=== PATIENT | female | born 1990 | race Caucasian/White ===

== ENCOUNTER 2025-04-15 12:46 | Emergency (ER) | payer MEDICARE, MEDICAID, SELFPAY ==
--- OUTSIDE RECORDS SUMMARY | 2022-05-28 09:30 | XMS_ITS | Continuity of Care Document ---
Author Organization [facility] Address [address] [place] [address] Phone Care Team Providers Care Ribbon Tier Name Role Phone Sumanth Saavedra OD, Ada Unavailable Unavailable Allergies, Adverse Reactions, Alerts Substance Reaction Status Criticality PENICILLIN Active No Information Sulfa (Sulfonamide Antibiotics) Active No Information Medications Medication Instructions Dosage Effective Dates (start - stop) Status Comments levothyroxine 25 mcg tablet - Active omeprazole 20 mg capsule,delayed release - Active Procedures Procedure Date VISUAL FIELD EXAMINATION(S) INTERMEDIATE EYE EXAM, NEW PATIENT May- Advance Directives Directive Yes / No Effective Date File Name No Information Encounters Encounter Description Practice Location Reason(s) For Visit Diagnoses Date Provider Providers Copied on Encounter [facility], [address] [place] [address], [place], [place], [facility], tel:[phone] [facility] Disability exam (chief complaint) Optic nerve hypoplasia, bilateralNys tagmusMyopia , left eye May- 2 Sumanth Saavedra OD Ada. [facility] [place], [place], [id number], . tel:[phone] Referring Provider: Beverley Saavedra OD, [address] [place], [address]. tel:[phone] [facility], [address] [place] [address], [place] [address], tel:[phone] [facility] No Information May- 2 Sumanth Saavedra OD Ada. [facility] [place], [place], [id number], . tel:[phone] Family History Family Member Type Diagnosis Age At Onset No Information Payers Payer name Insurance type Covered constitution party ID Brandi bales(s) [facility] [id number] Social History Type Description Quantity Date Captured Comments Alcohol Use Details Unknown Caffeine Use Details Unknown Tobacco Use Status Current non-smoker Smoking Status Never smoker Non-Smoking Tobacco Use Details : No Details Available : No Details Available Sex Undifferentiated Chief Complaint And Reason For Visit From encounter dated '05/28/2022 13:30'. Disability exam (chief complaint). Description: The 32 year old O presents for evaluation of Disability exam in the right eye and left eye. The condition is unstable. 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 Pt says that she can not see out of the OD and has some vision in OS. PT notes that she had glasses but misplaced them about 1 month ago, notes they were more for protection. Pt says that she also has nystagmus OU. Pt denies eye pain, flashes and floaters. No qtts. Reason For Referral Reason For Referral No Information Plan Of Treatment Date Type Action Status Patient Education Dilated Retinal Exam: A bout This Test completed History Of Present Illness Encounter Date Complaint History Of Prese nt Illness Disability exam The 32 year old O presents for evaluation of Disability exam in the right eye and left eye. The condition is unstable. 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 Pt says that she can not see out of the OD and has some vision in OS. PT notes that she had glasses but misplaced them about 1 month ago, notes they were more for protection. Pt says that she also has nystagmus OU. Pt denies eye pain, flashes and floaters. No qtts. Functional Status Date Functional Assessmen t No Information Instructions Date Instruction Additional Infor mation Impression/Plan Related to Optic nerve hypoplasia, bilateral Impression/Plan Related to Nysta gmus Impression/Plan Related to Myopi a, left eye Assessments Type Assessment Date assessment Optic nerve hypoplasia, timothya l assessment Nystagmus assessment Myopia, left eye impression Optic nerve hypoplasia, timothya l: H47.033 impression Nystagmus: H55.00 impression Myopia, left eye: H52.12 2021 Patient Care Teams Name Effective Dates (start - stop) Status Members No Information
--- OUTSIDE RECORDS SUMMARY | 2025-03-13 12:40 | XMS_ITS | Encounter Summary ---
Author Organization [facility] Address [address] [id number] Care Team Providers Care Cephalometric Analyst Name Role Phone Ana Wells APRN Primary Care Provider [phone] Reason for Referral * Consultation (Routine) - Authorized Specialty Diagnoses / Procedures Referred By Deidra riggins Referred To Contact Podiatry Diagnoses Ana Shea APRN [address] [place] [address] Phone: tel: fax: Referral ID Status Reason Start Date Expiration Date Visits Requested Visits Authorized [id number] Authorized Specialty Services Required 03/13/2025 09/12/2026 1 1 * Consultation (Routine) - Authorized Specialty Diagnoses / Procedures Referred By Deidra riggins Referred To Contact Behavioral Health Diagnoses Mild episode of recurrent major depressive disorder (CMS/HCC) Ana Wells APRN [address] [place] [address] Phone: tel: fax: Referral ID Status Reason Start Date Expiration Date Visits Requested Visits Authorized [id number] Authorized Specialty Services Required 03/13/2025 09/12/2026 [address] Bowman Reason for Visit * Reason Comments Follow-up Encounter Details Date Type Department Care Team (Latest Contact Info) Description 03/13/2025 12:40 PM EDT Office Visit [facility] Medicine [address] [place] [address] Ana Wells Johnathan, DEVOPS ARCHITECT [address] [place] [address] 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); Plantar wart; Acute nonintractable headache, unspecified headache type; Hypopituitarism (CMS/HCC); Hypothyroidism, unspecified type Social History Tobacco Use Types Packs/Day Years Used Date Smoking Tobacco: Never Passive Smoke Exposure: Never Smokeless Tobacco: Never Tobacco Cessation:Counseling Given: Not Answered Alcohol Use Standard Drinks/Week Comments Not Currently 0 (1 standard drink = 0.6 oz pur e alcohol) Humiliation, Afraid, Rape, and Kick questionnair e Answer Date Recorded Within the last year, have y ou been afraid of your partner or ex-partner? No 08/22/2024 Within the last year, have y ou been humiliated or emotionally abused in other ways by your partner or ex-partner? No Within the last year, have y ou been kicked, hit, slapped, or otherwise physically hurt by your partner or ex-partner? No 08/22/2024 Within the last year, have y ou been raped or forced to have any kind of sexual activity by your partner or ex-partner? No 08/22/2024 Social Connection and Isolation Panel Answer Date Recorded In a typical week, how many times do you talk on the phone with family, friends, or neighbors? More than three times a week 02/21/2024 How often do you get togethe r with friends or relatives? More than three times a week 02/21/2024 How often do you attend chur ch or jewish services? Never 02/21/2024 Do you belong to any clubs o r organizations such as yazidism groups, unions, fraternal or athletic groups, or school groups? No 02/21/2024 How often do you attend meet ings of the clubs or organizations you belong to? Never 02/21/2024 Are you , , di vorced, , never , or living with a partner? Living with partner 02/21/2024 AUDIT-C Answer Date Recorded Q1: How often do you have a drink containing alc ohol? Monthly or less 08/22/2024 Q2: How many drinks containi ng alcohol do you have on a typical day when you are drinking? 1 or 2 08/22/2024 Q3: How often do you have si x or more drinks on one occasion? Never 08/22/2024 Overall Financial Resource Strain (CARDIA) Answe r Date Recorded How hard is it for you to pa y for the very basics like food, housing, medical care, and heating? Not hard at all 02/21/2024 PHQ-2 Answer Date Recorded Patient Health Questionnaire-2 Score 2 08/27/2024 [facility] - Occupational Stress Questionnaire Answer Date Recorded Do you feel stress - tense, restless, nervous, or anxious, or unable to sleep at night because your mind is troubled all the time - these days? Not at all 02/21/2024 Exercise Vital Sign Answer Date Recorde d On average, how many days pe r week do you engage in moderate to strenuous exercise (like a brisk walk)? 3 days 08/22/2024 On average, how many minutes do you engage in exercise at this level? 30 min 08/22/2024 Hunger Vital Sign Answer Date Recorded Within the past 12 months, y ou worried that your food would run out before you got the money to buy more. Never true 08/22/19 25 Within the past 12 months, t he food you bought just didn't last and you didn't have money to get more. Never true 08/22/2024 PRAPARE - Transportation Answer Date Re corded In the past 12 months, has l ack of transportation kept you from medical appointments or from getting medications? No 03/2025 In the past 12 months, has l ack of transportation kept you from meetings, work, or from getting things needed for daily living? No 08/22/2024 Housing Stability Vital Sign Answer Nathan e Recorded In the last 12 months, was t here a time when you were not able to pay the mortgage or rent on time? No 02/21/2024 In the last 12 months, how many places have you lived? 1 02/21/2024 In the last 12 months, was t here a time when you did not have a steady place to sleep or slept in a intermediate (including now)? No 02/21/2024 PHQ-9 Answer Date Recorded Patient Health Questionnaire-9 Score 5 08/27/2024 Housing Stability Vital Sign Answer Nathan e Recorded In the last 12 months, was t here a time when you were not able to pay the mortgage or rent on time? No 08/22/2024 In the past 12 months, how m any times have you moved where you were living? 1 08/22/2024 At any time in the past 12 m [facility], were you homeless or living in a intermediate (including now)? No 08/22/2024 Utilities Answer Date Recorded In the past 12 months has th e electric, gas, oil, or water company threatened to shut off services in your home? No 08/22/2024 Comments Unknown Sex and Gender Information Value Date Recorded Sex Assigned at Not on file Legal Sex Female 8:07 PM EDT Gender Identity Not on file Sexual Orientation Not on file documented as of this encounter Last Filed Vital Signs Vital Sign Reading Time Taken Comments Blood Pressure 108/70 03/13/2025 12:40 PM EDT Pulse 74 03/13/2025 12:40 PM EDT Temperature - - Respiratory Rate 18 03/13/2025 12:40 PM EDT Oxygen Saturation 99% 03/13/2025 12:40 PM EDT Inhaled Oxygen Concentration - - Weight 46.5 kg (102 lb 8.2 oz) 03/13/2025 12:40 PM EDT Height 157.5 cm (5' 2 ) 03/13/2025 12:40 PM EDT Body Mass Index 18.75 03/13/2025 12:40 PM EDT documented in this encounter Functional Status * Calculated C-SSRS Risk Score (Lifetime/Recent) Answer Date of Assessment Author No Risk Indicated 03/13/2025 12:42 PM EDT Hattie Gonzalez * Question Answer Date of Assessment Author 1. Wish to be (Past 1 Month) No 025 12:42 PM EDT Hattie Mckeon 2. Non-Specific Active Suici jenaro Thoughts (Past 1 Month) No 03/13/2025 12:42 PM EDT La Nena Mckeon 6. Suicidal Behavior (Lifetime) No 12:42 PM EDT Hattie Mckeon documented as of this encounter Miscellaneous Notes * Progress Notes - Ana Wells, DEVOPS ARCHITECT - 03/13/2025 12:40 PM EDT Subjective Patient ID: Sharmila Vieyra is a 35 y.o. female. Chief Complaint Patient presents with Follow-up Here for follow-up. Patient says she saw Endo and has MRI scheduled in Apr. She remains on levothyroxine and they recommended she start vitamin D which she hasn't done just yet. She stopped Flexeril, says headaches improved and didn't feel like she needed it any more. Patient does c/o right foot pain for a couple weeks. Says the pain comes and goes, located on the bottom/outer part of her foot. She denies any injury or trauma. Hasn't really taken anything for the pain. Notices it more if she stands for a long period of time or if she hits the foot on something. No associated edema, erythema, ecchymosis, or warmth. Says she is also considering therapy for depression. She has a list of local providers, wondering if I had a recommendation. Denies any SI/HI. The following portions of the chart were reviewed this encounter and updated as appropriate: Tobacco Allergies Meds Problems Med Hx Surg Hx Fam Hx Current Medications[1] Review of Systems A 14 point ROS reviewed and is otherwise negative except as per HPI. Objective Visit Vitals BP 108/70 Pulse 74 Resp 18 Ht 1.575 m (5' 2 ) Wt 46.5 kg (102 lb 8.2 oz) SpO2 99% BMI 18.75 kg/m?? OB Status Unknown Smoking Status Never BSA 1.43 m?? Body mass index is 18.75 kg/m??. Physical Exam Vitals reviewed. Constitutional: General: She is not in acute distress. HENT: Mouth/Throat: Mouth: Mucous membranes are moist. Cardiovascular: Rate and Rhythm: Normal rate. Pulmonary: Effort: Pulmonary effort is normal. Skin: General: Skin is warm and dry. Comments: Calloused plantar wart noted to right foot, TTP. No erythema or drainage. Neurological: Mental Status: She is alert and oriented to person, place, and time. Psychiatric: Mood and Affect: Mood normal. Behavior: Behavior normal. Assessment/Plan 1. Mild episode of recurrent major depressive disorder (CMS/HCC) (Primary) Referral to see Dr. Bowman placed per patient request. Healthy coping mechanisms advised. Encouraged close follow-up for any worsening of symptoms. - Ambulatory referral to Behavioral Health; Future 2. Plantar wart Will refer to Podiatry due to difficulty treating. - Ambulatory referral to Podiatry; Future 3. Acute nonintractable headache, unspecified headache type Resolved per patient. Will continue to monitor. 4. Hypopituitarism (CMS/HCC) 5. Hypothyroidism, unspecified type Continue with Endo as scheduled. Ana Wells APRN [1] Current Outpatient Medications: levothyroxine (Synthroid, Levoxyl) 50 MCG tablet, Take 1 tablet (50 mcg) by mouth 1 (one) time eachday., Disp: 90 tablet, Rfl: 3 omeprazole (PriLOSEC) [address] capsule, Take 1 capsule (20 mg) by mouth 1 (one) time each day. Do not crush or chew., Disp: 90 capsule, Rfl: 3 Current Facility-Administered Medications: cosyntropin (Cortrosyn) injection 250 mcg, 250 mcg, Intramuscular, Once, Janay Collins DO documented in this encounter Plan of Treatment Upcoming Encounters Date Type Department Care Team (Late st Contact Info) Description 04/16/2025 2:00 PM EDT Office Visit [facility] [address] [place] [address] Cullen Bowman, Helene [address] [facility] [address] [place] [address] 04/17/2025 3:15 PM EDT Appointment [facility] [address] [place] [address] Scheduled Referrals Name Type Priority Associated Diagnoses Order Schedule Ambulatory referral to Behavioral Health Outpatient Referral Routine Mild episode of recurrent major depressive disorder (CMS/HCC) Expected: 03/13/2025 (Approximate), Expires: 09/14/2026 Ambulatory referral to Podiatry Outpatient Referral Routine Plantar wart Expected: 03/13/2025 (Approximate), Expires: 09/13/2026 documented as of this encounter Visit Diagnoses Diagnosis Mild episode of recurrent major depressive disorder (CMS/HCC)- Primary Plantar wart Acute nonintractable headache, unspecified headache type Hypopituitarism (CMS/HCC) Panhypopituitarism Hypothyroidism, unspecified type documented in this encounter Additional Health Concerns Assessment Noted Time PHQ-9 Depression Total Score: 5 08/27/19 25 2:24 PM EST A fall risk assessment has been complete d for the patient 08/22/2024 12:26 PM EST A Body Mass Index follow-up plan has been documented for the patient 03/13/2025 1:59 PM EDT documented as of this encounter Care Teams Cephalometric Analyst Relationship Specialty Start Date End Date Ana Wells APRN [address] [place] [address] PCP - General Family Medicine 02/21/24 documented as of this encounter
[2025-04-15 12:48] VITALS: BP 111/63; PULSE 70; RESP 18; TEMP 36.4; O2SAT 97; BMI 18.1
--- OUTSIDE RECORDS SUMMARY | 2025-04-15 13:10 | XMS_ITS | Encounter Summary ---
Author Organization Healthcare Address [address] [id number] Care Team Providers Care Automatic Centrifugal Station Operator Name Role Phone Ana Wells BRINE PURIFIER Primary Care Provider Reason for Visit * Reason Onset Date Comments HCN Clinical Concern/Question 03/25/2025 Pl ease see note... Encounter Details Date Type Department Care Team (Late st Contact Info) Description 03/25/2025 Telephone [facility] Medicine [address] [place] [address] Ana Wells APRN [address] [place] [address] HCN Clinical Concern/Question (Please see note...) Social History Tobacco Use Types Packs/Day Years Used Date Smoking Tobacco: Never Passive Smoke Exposure: Never Smokeless Tobacco: Never Alcohol Use Standard Drinks/Week Comments Not Currently [...] often do you attend chur ch or jainism services? Never 02/21/2024 Do you belong to any clubs o r organizations such as religion groups, unions, fraternal or athletic groups, or [...] Recorded Patient Health Questionnaire-2 Score 2 08/27/2024 [facility] - Occupational Stress Questionnaire Answer Date Recorded [...] place to sleep or slept in a fci (including now)? No 02/21/2024 PHQ-9 Answer Date [...] any time in the past 12 m [facility], were you homeless or living in a fci (including now)? No 08/22/2024 Utilities Answer Date [...] on file documented as of this encounter Miscellaneous Notes * Telephone Encounter - Yuli Hester - 03/26/2025 8:46 AM EDT Called and scheduled patient for 04/16/25 * Telephone Encounter - Pia Harmon - 03/25/2025 12:24 PM EDT Clinical Concern/Question Reason for Call: Virgen Huggins called with patient on the line asking to schedule patient for appointment with Dr. Bowman that patient was referred to see at last appointment. Patient is asking to be contacted at Virgen Huggins phone number [phone]. Best contact number: Other: [phone] Optimal time of day to reach caller: ANYTIME Additional comments/information from caller: Not Applicable Note: Please do not reply to this message. Follow-up communication and further actions as a result of this message need to be communicated with the patient directly, if the patient is not active onMyChart. If the patient is active on MyChart, they will receive notification of the communication/outcome via [employer]. documented in this encounter Plan of Treatment Upcoming Encounters Date Type Department Care Team (Late st Contact Info) Description 04/16/2025 2:00 PM EDT Office Visit [facility] [address] [place] [address] Cullen Bowman, PsyD [address] [place] [address] [place] [address] 04/17/2025 3:15 PM EDT Appointment [facility] [address] [place] [address] documented as of this encounter Visit Diagnoses Not on filedocumented in this encounter Additional Health Concerns Assessment Noted Time PHQ-9 Depression Total Score: 5 08/27/19 25 2:24 PM EST A fall risk assessment has been complete d for the patient 08/22/2024 12:26 PM EST A Body Mass Index follow-up plan has been documented for the patient 03/13/2025 1:59 PM EDT documented as of this encounter Care Teams Automatic Centrifugal Station Operator Relationship Specialty Start Date End Date Ana Wells APRN [address] [place] [address] PCP - General Family Medicine 02/21/24 documented as of this encounter
--- OUTSIDE RECORDS SUMMARY | 2025-04-15 13:10 | XMS_ITS ---
Author Organization [facility] Address [address] [place] [address] Care Team Providers Care Line Maintenance Name Role Phone Ana Wells APRN Primary Care Provider Annual Wellness Status:Closed (Closed) Start date:08/20/2024 Enrollment date:08/22/2024 Enrollment reason:Identified using claims or encounter data End date:02/16/2025 Close reason:Patient graduated Continued Care and Services Coordination
--- OUTSIDE RECORDS SUMMARY | 2025-04-15 13:10 | XMS_ITS | Encounter Summary ---
Author Organization Healthcare Address [address] [id number] Care Team Providers Care Supervisor Transcribing Operators Name Role Phone Ana Wells TD Primary Care Provider Encounter Details Date Type Department Care Team (Latest Contact Info) Description 03/13/2025 Travel Social History Tobacco Use Types Packs/Day Years [...] often do you attend chur ch or methodist services? Never 02/21/2024 Do you belong to any clubs o r organizations such as druze groups, unions, fraternal or athletic groups, or [...] Recorded Patient Health Questionnaire-2 Score 2 08/27/2024 [facility] - Occupational Stress [...] place to sleep or slept in a alf (including now)? No 02/21/2024 PHQ-9 Answer Date [...] any time in the past 12 m [facility], were you homeless or living in a alf (including now)? No 08/22/2024 Utilities Answer Date [...] on file documented as of this encounter Functional Status * Calculated C-SSRS Risk Score (Lifetime/Recent) Answer Date of Assessment Author No Risk Indicated 03/13/2025 12:42 PM EDT Hattie Gonzalez * Question Answer Date of Assessment Author 1. Wish to be (Past 1 Month) No 025 12:42 PM BEBOT Hattie Mckeon 2. Non-Specific Active Suici jenaro Thoughts (Past 1 Month) No 03/13/2025 12:42 PM BEBOT La Nena Mckeon 6. Suicidal Behavior (Lifetime) No 12:42 PM Hattie Rizzo documented as of this encounter Plan of Treatment Upcoming Encounters Date Type Department Care Team (Late st Contact Info) Description 04/16/2025 2:00 PM EDT Office Visit [facility] [address] [place] [address] Cullen Bowman, PsyD [address] [facility] [address] [place] [address] 04/17/2025 3:15 PM EDT Appointment [facility] [address] [place] [address] documented as of this encounter Visit Diagnoses [...] documented as of this encounter Care Teams Supervisor Transcribing Operators Relationship Specialty Start Date End Date Ana Wells APRN [address] [place] [address] PCP - General Family Medicine 02/21/24 documented as of this encounter
--- OUTSIDE RECORDS SUMMARY | 2025-04-15 13:10 | XMS_ITS | Clinical Summary ---
Author Organization Healthcare Address [address] [place] [address] Care Team Providers Care Welding Machine Operator/Tender Name Role Phone Ana Wells APRN Primary Care Provider Allergies Active Allergy Reactions Criticality Noted Date Comments Penicillins Rash,Unknown - Patie nt states they do not know rxn details Low 04/19/2005 Sulfacetamide Rash,Unknown - Patie nt states they do not know rxn details Low 04/19/2005 Medications omeprazole (PriLOSEC) [address] capsuleIndicatio ns:Chronic upset stomach Take 1 capsule (20 mg) by mouth 1 (one) time each day. Do not crush or chew. 90 capsule 3 06/25/2024 Active levothyroxine (Synthroid, Levoxyl) 50 MCG tabletIndication s:Hypothyroidism , unspecified type Take 1 tablet (50 mcg) by mouth 1 (one) time each day. 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 Hypothyroidism 11/09/2014 Legally blind 11/09/2014 Encounters Date Type Department Care Team Description 03/25/[address] [address] Ana Wells, IT SOFTWARE ENGINEER HCN Clinical Concern/Question (Please see note...) 03/13/2025 12:40 PM EDT Office Visit [facility] [address] [place] [address] Ana Wells APRN 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); Plantar wart; Acute nonintractable headache, unspecified headache type; Hypopituitarism (CMS/HCC); Hypothyroidism, unspecified type 03/13/2025 Travel from Last 3 Months Immunizations Immunization Administration Dates Next Due Hep A, ped/adol, 2 dose 03/04/2008 Moderna COVID-19 Vaccine (Kitchen Cleaner) 12+ years 09/2020,02/16/2021 Family History Medical History Relation Name Comments Hypertension, benign Father Brain cancer Mother Hypertension, benign Paternal Grandmother Scoliosis Paternal Grandmother Relation Name Status Comments Father Mother Paternal Grandmother Social History Tobacco Use Types Packs/Day Years [...] week 02/21/2024 How often do you attend [facility] or [facility] services? Never 02/21/2024 Do you belong to any clubs o r organizations such as samaritan groups, unions, fraternal or athletic groups, or [...] Recorded Patient Health Questionnaire-2 Score 2 08/27/2024 [facility] - Occupational Stress Questionnaire Answer Date Recorded [...] place to sleep or slept in a snf (including now)? No 02/21/2024 PHQ-9 Answer Date [...] were you homeless or living in a snf (including now)? No 08/22/2024 Utilities Answer Date Recorded In the past 12 months has th e [employer], gas, oil, or water company threatened to shut off services in your home? No 08/22/2024 Comments Unknown Sex and Gender Information Value Date Recorded Sex Assigned at Not on file Legal Sex Female 8:07 PM EDT Gender Identity Not on file Sexual Orientation Not on file Last Filed Vital Signs Vital Sign Reading [...] Mass Index 18.75 03/13/2025 12:40 PM EDT Plan of Treatment Upcoming Encounters Date Type Department Care Team (Late st Contact Info) Description 04/16/2025 2:00 PM EDT Office Visit [facility] [address] [place] [address] Cullen Bowman, Helene [address] [place] [address] 04/17/2025 3:15 PM EDT Appointment [facility] [address] [place] [address] Health Maintenance Due Date Last Done Comments [facility]-Infant/Child/Adol SDOH Screenings 1991 [facility]-Varicella Vaccines (1 of 2 - 13+ 2-dose series) 01/08/2004 [facility]-Hepatitis A Vaccines (2 of 2 - 2-dose series) 09/04/2008 03/04/2008 [facility]-DTaP,Tdap,and Td Vaccines (1 - Tdap) 2010 [facility]-Hepatitis B Vaccines (1 of 3 - 19+ 3-dose series) 2010 [facility]-Pap Smear 01/08/2012 HPV Vaccines (1 - 3-dose SCDM series) 2018 [facility]-Cervical Cancer Screening 2021 [facility]-HPV/Cotest 2021 [id number]-21 Vaccine (3 - Moderna risk series) 04/13/2021 03/16/2021, 02/16/2021 [facility]- SDOH Screenings 02/19/2025 [facility]-Adult SDOH Screenings 02/19/2025 08/22/2024 [facility]-Influenza Vaccine (#1) 2025 [facility]-Depression Screening 08/27/2025 025, 08/27/2024 [facility]-Medicare Annual Wellness (AWV) 08/27/2025 08/27/2024 [facility]-Zoster Vaccines (1 of 2) 2041 [facility]-HIV Screening Completed 02/21/2024 [facility]-Hepatitis C Screening Completed 02/21/2024 [facility]-HIB Vaccines Aged Out No longer e ligible based on patient's age to complete this topic [facility]-IPV Vaccines Aged Out No longer e ligible based on patient's age to complete this topic [facility]-Pneumococcal Vaccine: Pediatrics (0 to 5 Years) and At-Risk Patients (6 to 49 Years) Aged Out No longer eligible b ased on patient's age to complete this topic [facility]-Rotavirus Vaccines Aged Out No lo nger eligible based on patient's age to complete this topic Procedures Procedure Name Priority Date/Time Associated Diagnosis Comments HEPATITIS C ANTIBODY W/REFLEX TO HCV QUANT PCR Routine 02/21/2024 1:11 PM EDT Need for hepatitis C screening test HIV 1/2 ANTIBODY/ANTIGEN SCREEN WITH REFLEX TO HIV I/II DIFFERENTIATION Routine 02/21/2024 1:11 PM EDT Screening for human immunodeficiency virus from Last 3 Months or Most Recently Relevant to Health Maintenance Results * HIV 1 & 2 Antibody/Antigen Screen (02/21/2024 1:11 PM EDT) Pathologist [facility] HIV 1 & 2 Antibody/Antigen Screen Non Reactive Non Reactive 02/21/2024 9:24 PM EDT [facility] Comment:Screening for HIV 1 & 2 antibodies, and P24 antigen is NONREACTIVE. No confirmatory testing is required. Blood Venous blood specimen / Unknown Venipuncture / Unknown 02/21/2024 1:11 PM EDT 02/21/2024 1:11 PM EDT Ana Wells APRN LAB BLOOD ORDERABLES Final Resu lt Performing Organization Address City/[facility]/ZIP Co de Phone Number [facility] [address] [place] [address] * Hepatitis C Antibody w/Reflex to HCV Quant PCR (02/21/2024 1:11 PM EDT) Pathologist [facility] Hepatitis C Antibody Negative Negative 02/21/2024 7:37 PM EDT [facility] Blood Venous blood specimen / Unknown Venipuncture / Unknown 02/21/2024 1:11 PM EDT 02/21/2024 1:11 PM EDT Ana Wells IT SOFTWARE ENGINEER LAB BLOOD ORDERABLES Final Resu lt Performing Organization Address City/[facility]/ZIP Co de Phone Number [facility] [address] [place] [address] from Last 3 Months or Most Recently Relevant to Health Maintenance Insurance [facility] MEDICAID MEDICARE Care Teams Welding Machine Operator/Tender Relationship Specialty Start Date End Date Ana Wells APRN [address] [place] [address] PCP - General Family Medicine 02/21/24
[2025-04-15 13:30] VITALS: BP 103/66; PULSE 68; O2SAT 97
[2025-04-15 13:32] LABS: Microscopic, Urine URINE MICROSCOPIC (MICROSCOPIC)
[2025-04-15] MEDS: 0.9 % SODIUM CHLORIDE 1000ML 1,000 ML 999 ML IV (13:32)
[2025-04-15] MEDS: ONDANSETRON 4MG/2ML VIAL 4 MG IV (13:32)
[2025-04-15 13:34] LABS: Hematocrit 27.8 % (37.0-47.0); Hemoglobin 9.7 g/dL (12.2-16.2); Immature Granulocytes % 0.1 %; Mean Corpuscular HGB Conc 34.9 g/dL (31.8-35.4); Mean Corpuscular Hemoglobin 32.0 pg (27.0-31.2); Mean Corpuscular Volume 91.7 fl (81-99); Nucleated Red Blood Cells % 0 %; Platelet Count 202 K/mm3 (142-424); Red Blood Count 3.03 M/mm3 (4.20-5.40); Red Cell Distribution Width-SD 41.4 fL; White Blood Count 7.9 K/mm3 (4.8-10.8)
[2025-04-15 13:38] LABS: Urine Pregnancy, HCG Qual. Negative (Negative)
[2025-04-15 13:44] LABS: Albumin Level 4.1 g/dl (3.5-5.0); Chloride 108 mmol/L (98-107); Sodium 139 mmol/L (136-145)
[2025-04-15 13:45] LABS: Potassium 4.5 mmoL/L (3.5-5.1)
[2025-04-15 13:47] LABS: Alanine Aminotransferase 13 U/L (12-78); Albumin/Globulin Ratio 1.4 (1.1-1.8); Alkaline Phosphatase 38 U/L (38-126); Anion Gap 9.5 mEq/L (5-15); Aspartate Amino Transferase 36 U/L (14-36); Bilirubin,Total 0.4 mg/dl (0.2-1.3); Blood Urea Nitrogen 18 mg/dl (7-17); Carbon Dioxide 26 mmol/L (22.0-30.0); Creatinine Clearance Estimated 47 mL/min (50-200); Creatinine,Serum 1.20 mg/dl (0.52-1.04); Estimated Glomerular Filt Rate 51 ml/min (>60); GFR (African American) 62 ML/MIN (>60); Globulin 2.9 g/dL (1.3-3.2); Lipase 89 U/L (23-300); Total Protein,Serum 7.0 g/dl (6.3-8.2)
[2025-04-15 13:48] LABS: Calcium 8.9 mg/dl (8.4-10.2); Glucose 83 mg/dl (74-100)
[2025-04-15 13:49] LABS: Bilirubin,Urine Negative (Negative); Color,Urine YELLOW (Yellow); Glucose,Urine (UA) Negative (Negative); Ketones,Urine Negative (Negative); Leukocyte Esterase,Urine Negative (Negative); PH,Urine 6.5 (5.0-8.5); Protein,Urine Negative (Negative); Specific Gravity, Urine 1.015 (1.005-1.030); Urobilinogen,Urine 0.2 EU/dl (0.2)
[2025-04-15 13:51] LABS: Squamous Epithelial Cell,Urine Occasional #/hpf (0-5); WBC,Urine Occasional #/hpf (0-3)
[2025-04-15 14:00] VITALS: O2SAT 100
--- NOTE | 2025-04-15 14:11 | ED_ITS ---
<Statement entered by Perry Espinosa MD - 04/15/25 20:33> I was consulted by the DIANA, and we discussed the complexity of the problems being addressed. I approve the treatment and management plan for this patient's care in the emergency department, thus performing a substantive portion of the medical decision making. I had a further discussion with patient regarding her symptoms and anemia. She states that she has been worked up and diagnosed with iron deficiency anemia in the past and was previously on iron supplementation. She is unsure why she has iron deficiency anemia and reports no obvious sources of bleeding. With her diarrhea, she denies any bloody or dark stools. I personally performed a gallbladder ultrasound due to some mild RUQ abdominal pain with palpation, which was negative. See procedure note for details. Patient could not recall what her hemoglobin has been in the past and there is nothing to compare it to in our system, however, she has no active bleeding that we can identify and she is followed by her PCP closely for her anemia. Perry Espinosa MD Discharge Plan Disposition Patient Disposition: Home, Self-Care Condition: Good Prescriptions Prescriptions: New ondansetron 4 mg tablet,disintegrating 4 mg PO Q8H PRN (Reason: nausea and vomiting) 3 Days Qty: 9 0RF Referrals Follow up/Referrals: Louisa Leon APRN [Primary Care Provider, Medical] - See instructions Activity Restrictions/Add. Instructions Additional Instructions/Restrictions: You were seen for abdominal pain and diarrhea. Return to the ER for any worsening of symptoms. Follow up with your PCP to discuss your anemia. You need to have your kidney function rechecked as well. Clinical Impressions Clinical Impression: Diarrhea, Anemia Instructions Patient Instructions: DI for Acute Abdominal Pain Print Language Print Language: Azerbaijani Discharge ED Provider: Perry Espinosa General Adult HPI <PASCUAL Harp - Last Filed: 04/15/25 14:50> General Chief complaint: Abdominal Pain Stated complaint: nausea, stomach pain Time Seen by Provider: 04/15/25 12:55 Mode of Arrival: Ambulatory Source of Information: Patient Description of Symptoms (Recalled from ER Triage Doc. by RN): Pt presents with c/o abd pain x 2 days. Pt states she has also had nausea and diarrhea. Pt states the pain is a 4/10 currently but intermittently increases. Pt states others in the home have had the same sx. History of Present Illness HPI narrative: Patient presents complaining of nausea and diarrhea since yesterday. She reports some lower abdominal pain which has moved to the periumbilical area today. Denies any fever. Denies any UTI symptoms. Denies any current . MD complaint: nausea Onset (ago): day(s) (2) Location: abdomen Severity: mild Relieving factors: none Exacerbating factors: none Associated symptoms: nausea/vomiting Related Data Previous Rx's ?Medication ?Instructions ?Recorded ondansetron 4 mg disintegrating 4 mg PO Q8H PRN nausea and 04/15/25 tablet vomiting 3 days #9 tabs Allergies Allergy/AdvReac Type Severity Reaction Status Date / Time Penicillins (PCN) Allergy Rash Verified 04/15/25 12:57 Sulfa (Sulfonamide Allergy Rash Verified 04/15/25 12:58 Antibiotics) [facility] <PASCUAL Harp - Last Filed: 04/15/25 14:50> [facility] Disclaimer: The information contained in this section may have been updated after the patient was seen, as this information can be updated by other users. Social History Smoking Status: Never smoker alcohol intake: never current occupational status: other Travel in the last 8 weeks?: None <PASCUAL Harp - Last Filed: 04/15/25 14:50> ROS Obtained: Yes Systems reviewed as appropriate & no additional complaints except as documented Physical Exam <PASCUAL Harp - Last Filed: 04/15/25 14:50> General General appearance: alert and in no apparent distress Head Head exam: atraumatic and normocephalic Eye Eye exam: Present normal appearance and EOMI Chest Chest inspection: Present symmetric chest wall rise Respiratory Respiratory exam: Present normal lung sounds bilaterally; Absent wheezes or stridor Cardiovascular Cardiovascular exam: Present regular rate and normal rhythm; Absent systolic murmur Abdominal Exam Abdominal exam: Present soft; Absent distention, tenderness or guarding Extremities Exam Extremities exam: Present full ROM Neurological Exam Neurological exam: Present alert and oriented X3 Psychiatric Psychiatric exam: Present normal affect and normal mood Skin Skin exam: Present warm, dry and intact Medical Decision Making <PASCUAL Harp Last Filed: 04/15/25 14:50> Medical Records Screening: Per USPSTF and CDC recommendations, given the prevalence of disease in our region, it is our hospital?s policy to screen for HIV and viral Hepatitis for all patients aged 18 and over and those with ongoing risk factors. Jose A Inquiry Pt receiving controlled substance: No Vital Signs: 04/15/25 12:48 04/15/25 13:30 04/15/25 14:00 Temperature 97.6 F Temperature Source Oral Pulse Rate 68 Pulse Rate [Right] 70 Respiratory Rate 18 Blood Pressure 103/66 L Blood Pressure [Right Arm] 111/63 Blood Pressure Mean [Right Arm] 79 Blood Pressure Source [Right Arm] Automatic Cuff Blood Pressure Position [Right Arm] Sitting 02 Sat by Pulse Oximetry 97 97 100 Oxygen Delivery Method Room Air Lab Data Lab Results 04/15/25 13:20: WBC 7.9, RBC 3.03 L, Hgb 9.7 L, Hct 27.8 L, MCV 91.7, MCH 32.0 H , MCHC 34.9, RDW 12.3, Plt Count 202, MPV 10.3, Neut % (Auto) 62.6, Lymph % (Auto) 23.8, Lipscomb % (Auto) 8.2, Eos % (Auto) 3.8, Baso % (Auto) 1.5, Neut # (Auto) 4.9, Lymph # (Auto) 1.9, Lipscomb # (Auto) 0.7, Eos # (Auto) 0.3, Baso # (Auto) 0.1, Sodium 139, Potassium 4.5, Chloride 108 H, Carbon Dioxide 26, Anion Gap 9.5, BUN 18 H, Creatinine 1.20 H, Estimated Creat Clear 47, Estimated GFR 51 L, Est GFR ( Amer) 62, Glucose 83, Calcium 8.9, Total Bilirubin 0.4, AST 36, ALT 13, Alkaline Phosphatase 38, Total Protein 7.0, Albumin 4.1, Globulin 2.9, Albumin/Globulin Ratio 1.4, Lipase 89, Urine Color Yellow, Urine Appearance Clear, Urine pH 6.5, Ur Specific Antoine 1.015, Urine Protein Negative, Urine Glucose (UA) Negative, Urine Ketones Negative, Urine Blood Negative, Urine Nitrate Negative, Urine Bilirubin Negative, Urine Urobilinogen 0.2, Ur Leukocyte Esterase Negative, Urine RBC None, Urine WBC Occasional, Ur Squamous Epith Cells Occasional, Urine Bacteria None, Urine HCG, Qual Negative 04/15/25 13:20 04/15/25 13:20 Orders (Tests/Meds): ED MEDICATIONS Discontinued Medications Generic Name Dose Route Start Last Admin Trade Name Zaida PRN Reason Stop Dose Admin Sodium Chloride 1,000 mls @ 999 mls/hr 04/15/25 13:19 04/15/25 14:35 Sod Chlor 0.9% 1000ml Bag IV 04/15/25 14:19 Infused .Q1H1M ONE Infusion Ondansetron HCl 4 mg 04/15/25 13:24 04/15/25 13:32 Ondansetron 4mg/2ml Vial IV 04/15/25 13:25 4 mg ONCE ONE Administration ORDERS Category Date Time Status POCUS Point of Care (ER Only) Stat Exams 04/15/25 14:34 Ordered CBC w/Auto Diff [Complete Blood Count Auto Diff] Stat Lab 04/15/25 13:20 Completed CMP [Comprehensive Metabolic Panel] Stat Lab 04/15/25 13:20 Completed Diarrhea 23 Panel, PCR Stat Lab 04/15/25 13:24 Ordered Lipase Stat Lab 04/15/25 13:20 Completed Urinalysis and Microscopic Stat Lab 04/15/25 13:20 Completed Urine , HCG Qual. Stat Lab 04/15/25 13:20 Completed Medical Decision Narrative: In summary patient is a 35-year-old female who presents the emergency department for evaluation of abdominal pain, diarrhea. Patient is hemodynamically stable upon arrival, afebrile. Unremarkable physical exam. Differential diagnosis includes viral illness, dehydration, electrolyte abnormality, UTI. Initial workup will be conducted with hematologic labs, urinalysis. Initial inventions include IV fluids, Zofran. Initial workup reviewed by me reveals anemia, slight elevation in. Upon repeat evaluation patient is resting comfortably and feeling better after IV fluids and Zofran. Given this patient appropriate for discharge home at this time with follow-up with PCP and return precautions. <Perry Espinosa MD - Last Filed: 04/15/25 14:48> Vital Signs: 04/15/25 12:48 04/15/25 13:30 04/15/25 14:00 Temperature 97.6 F Temperature Source Oral Pulse Rate 68 Pulse Rate [Right] 70 Respiratory Rate 18 Blood Pressure 103/66 L Blood Pressure [Right Arm] 111/63 Blood Pressure Mean [Right Arm] 79 Blood Pressure Source [Right Arm] Automatic Cuff Blood Pressure Position [Right Arm] Sitting 02 Sat by Pulse Oximetry 97 97 100 Oxygen Delivery Method Room Air Lab Data Lab Results 04/15/25 13:20: WBC 7.9, RBC 3.03 L, Hgb 9.7 L, Hct 27.8 L, MCV 91.7, MCH 32.0 H , MCHC 34.9, RDW 12.3, Plt Count 202, MPV 10.3, Neut % (Auto) 62.6, Lymph % (Auto) 23.8, Lipscomb % (Auto) 8.2, Eos % (Auto) 3.8, Baso % (Auto) 1.5, Neut # (Auto) 4.9, Lymph # (Auto) 1.9, Lipscomb # (Auto) 0.7, Eos # (Auto) 0.3, Baso # (Auto) 0.1, Sodium 139, Potassium 4.5, Chloride 108 H, Carbon Dioxide 26, Anion Gap 9.5, BUN 18 H, Creatinine 1.20 H, Estimated Creat Clear 47, Estimated GFR 51 L, Est GFR ( Amer) 62, Glucose 83, Calcium 8.9, Total Bilirubin 0.4, AST 36, ALT 13, Alkaline Phosphatase 38, Total Protein 7.0, Albumin 4.1, Globulin 2.9, Albumin/Globulin Ratio 1.4, Lipase 89, Urine Color Yellow, Urine Appearance Clear, Urine pH 6.5, Ur Specific Antoine 1.015, Urine Protein Negative, Urine Glucose (UA) Negative, Urine Ketones Negative, Urine Blood Negative, Urine Nitrate Negative, Urine Bilirubin Negative, Urine Urobilinogen 0.2, Ur Leukocyte Esterase Negative, Urine RBC None, Urine WBC Occasional, Ur Squamous Epith Cells Occasional, Urine Bacteria None, Urine HCG, Qual Negative Orders (Tests/Meds): ED MEDICATIONS Discontinued Medications Generic Name Dose Route Start Last Admin Trade Name Freq PRN Reason Stop Dose Admin Sodium Chloride 1,000 mls @ 999 mls/hr 04/15/25 13:19 04/15/25 14:35 Sod Chlor 0.9% 1000ml Bag IV 04/15/25 14:19 Infused .Q1H1M ONE Infusion Ondansetron HCl 4 mg 04/15/25 13:24 04/15/25 13:32 Ondansetron 4mg/2ml Vial IV 04/15/25 13:25 4 mg ONCE ONE Administration ORDERS Category Date Time Status POCUS Point of Care (ER Only) Stat Exams 04/15/25 14:34 Ordered CBC w/Auto Diff [Complete Blood Count Auto Diff] Stat Lab 04/15/25 13:20 Completed CMP [Comprehensive Metabolic Panel] Stat Lab 04/15/25 13:20 Completed Diarrhea 23 Panel, PCR Stat Lab 04/15/25 13:24 Ordered Lipase Stat Lab 04/15/25 13:20 Completed Urinalysis and Microscopic Stat Lab 04/15/25 13:20 Completed Urine , HCG Qual. Stat Lab 04/15/25 13:20 Completed Procedures <Perry Espinosa MD - Last Filed: 04/15/25 14:48> Limited Ultrasound Interpretation:: Limited RUQ ultrasound Indication: Abdominal pain, nausea, diarrhea Identified structures: -Gallbladder -Gallbladder wall -Common bile duct -Liver Findings: Sonographic Ratliff sign: Absent Gallstones: Absent Sludge: Absent Pericholecystic fluid: Absent Maximal GB wall thickness (mm): Normal is </= 3mm Normal Common bile duct width (mm): Normal is </= 6mm Normal Gallbladder width (cm): Normal is < 4cm Normal Gallbladder length (cm): Normal is < 10cm Normal Impression: -Normal gallbladder -Cholelithiasis -Cholecystitis -Choledocholithiasis Images were saved to permanent archive The study was technically adequate CPT 59357-61 This study was performed by me, and I personally interpreted all images/videos. Based on my clinical judgement, these images were adequate and did not necessitate further imaging. Critical Care <PASCUAL Harp - Last Filed: 04/15/25 14:50> Critical Care Time Critical Care Time: No
[2025-04-15 14:57] VITALS: BP 95/66; PULSE 62; RESP 16; TEMP 36.8; O2SAT 99
== END 2025-04-15 14:59 | disposition home or self-care (01) ==
PROVIDERS: Physician Assistant; Emergency Provider Student in an Organized Health Care Education/Training Program; PCP Nurse Practitioner Family
DX: R10.84 Generalized abdominal pain (principal); R11.0 Nausea; R19.7 Diarrhea, unspecified; D50.9 Iron deficiency anemia, unspecified
CPT/HCPCS: 80053; 81001; 81025; 83690; 85025; 96361; 96374; 99284; J2405; J7030